=== PATIENT | female | born 1980 | race Asian ===

== ENCOUNTER 2018-01-13 03:15 | Inpatient (IN) | payer SELFPAY ==
[~2018-01-13] VITALS: Ht 162.6 cm; Wt 67.1 kg
[2018-01-13] MEDS ORDERED: LR 1,000 ML IV ONE (03:31)
[2018-01-13] MEDS ORDERED: CEFAZOLIN 2 GM IVPB PREMIX 50 ML IV ONE (03:45)
[2018-01-13 04:50] LABS: CALCIUM 9.3 mg/dL (8.4-11.0); CREATININE 0.44 mg/dL (0.55-1.30); POTASSIUM 3.8 mmol/L (3.5-5.1)
[2018-01-13 04:56] LABS: ALBUMIN 2.8 g/dL (3.4-4.8); TOTAL BILIRUBIN 0.4 mg/dL (0.0-1.0)
[2018-01-13 05:02] LABS: BASOPHILS % (AUTO) 0.1 % (0.0-2.0); EOSINOPHILS % (AUTO) 0.5 % (0.0-4.0); HEMATOCRIT 37.3 % (36-48); HEMOGLOBIN 12.9 g/dL (12.0-16.0); LYMPHOCYTES # (AUTO) 1.6 K/uL (1.0-5.5); LYMPHOCYTES % (AUTO) 25.7 % (20.5-51.5); MEAN CORPUSCULAR HEMOGLOBIN 34 pg (27-31); MEAN CORPUSCULAR HGB CONC 35 % (32-36); MEAN CORPUSCULAR VOLUME 97 fL (79.0-98.0); MONOCYTES # (AUTO) 0.7 K/uL (0.0-1.0); NEUTROPHILS % (AUTO) 62.7 % (40.0-70.0); PLATELET COUNT (AUTO) 194 K/uL (130-430); RED BLOOD CELL COUNT(AUTO) 3.83 MIL/uL (4.2-6.2); RED CELL DISTRIBUTION WIDTH 12.8 % (9.0-15.0); WHITE BLOOD COUNT (AUTO) 6.3 K/uL (4.8-10.8)
[2018-01-13] MEDS: LR 1,000 ML IV SCH ×2 (05:10→20:32)
[2018-01-13 05:18] VITALS: BP_SYST 135
[2018-01-13] MEDS ORDERED: BUPIVACAINE /DEX PF 0.75% SPINAL 2 ML AMP INJ ONE (06:05)
[2018-01-13] MEDS ORDERED: MORPHINE SULFATE 10MG/10ML PF AMP EP ONE (06:05)
[2018-01-13] MEDS ORDERED: LR 1,000 ML IV.SOLN IV ONE (06:05)
[2018-01-13] MEDS ORDERED: OXYTOCIN 10 UNIT/ML VIAL IV ONE (06:05)
[2018-01-13] MEDS ORDERED: NS IRRIG SOLN 1000 ML IR ONE (06:05)
[2018-01-13] MEDS ORDERED: METHYLERGONOVINE MALEATE 0.2 MG/ML AMP IM ONE (06:05)
[2018-01-13] MEDS ORDERED: CLINDAMYCIN PHOSPHATE 900 mg/50mL D5W IV ONE (06:05)
[2018-01-13] MEDS ORDERED: OXYTOCIN/NORMAL SALINE 1,000 ML IV ONE (06:12)
[2018-01-13] MEDS ORDERED: SENNOSIDES/DOCUSATE SODIUM 1 TAB TABLET(SENOKOT-S) PO PRN (06:15)
[2018-01-13] MEDS ORDERED: MEASLES,MUMPS&RUBELLA VACC/PF 12500 UNIT/0.5 ML VIAL SUBQ PRN (06:15)
[2018-01-13] MEDS ORDERED: TEMAZEPAM 15 MG CAPSULE PO PRN (06:15)
[2018-01-13] MEDS ORDERED: HYDROcodone/ACETAMIN 5-325 MG TAB (NORCO/ VICODIN) PO PRN (06:15)
[2018-01-13] MEDS ORDERED: SIMETHICONE 80 MG TAB.CHEW PO PRN (06:15)
[2018-01-13] MEDS ORDERED: ANUSOL 1 EA SUPP.RECT (PREPARATION H) RC PRN (06:15)
[2018-01-13] MEDS ORDERED: ACETAMINOPHEN 325 MG TABLET PO PRN (06:15)
[2018-01-13] MEDS ORDERED: RHO(D) IMMUNE GLOBULIN/MALTOSE 1500 UNITS/1.3 ML (WINHRO) IM PRN (06:15)
[2018-01-13] MEDS ORDERED: LANOLIN 7 GM OINT. TP PRN (06:15)
[2018-01-13] MEDS ORDERED: DIPHENHYDRAMINE INJ 50 MG/ML VIAL IVP PRN (06:45)
[2018-01-13] MEDS ORDERED: KETOROLAC TROMETHAMINE 60 MG/2 ML VIAL IM PRN (06:45)
[2018-01-13] MEDS ORDERED: fentaNYL CITRATE/PF 100 MCG/2 ML AMP IVP PRN ×2 (06:45)
[2018-01-13] MEDS ORDERED: NALOXONE HCL 0.4 MG/ML AMP (NARCAN) IVP PRN ×2 (06:45)
[2018-01-13] MEDS ORDERED: KETOROLAC TROMETHAMINE 30 MG VIAL IVP PRN (06:45)
[2018-01-13] MEDS ORDERED: MORPHINE SULFATE 10MG/10ML PF AMP SP SCH (06:45)
[2018-01-13] MEDS ORDERED: ONDANSETRON HCL 4 MG/2 ML VIAL IVP PRN ×2 (06:45)
[2018-01-13] MEDS ORDERED: NALBUPHINE HCL 10 MG/ML AMP IVP PRN (06:45)
[2018-01-13 07:01] VITALS: BP_SYST 133
[2018-01-13] MEDS ORDERED: ALBUTEROL SULFATE 0.083% 2.5 MG/3 ML VIAL.NEB INH ONE ×2 (07:15→07:18)
[2018-01-13] MEDS: IBUPROFEN 600 MG TABLET PO SCH ×2 (12:00→18:16)
[2018-01-13] MEDS ORDERED: ONDANSETRON HCL 4 MG/2 ML VIAL ONE (12:16)
[2018-01-14] MEDS: IBUPROFEN 600 MG TABLET PO SCH ×4 (00:43→18:22)
[2018-01-14] MEDS: LR 1,000 ML IV SCH (04:14)
[2018-01-14 06:09] LABS: BASOPHILS % (AUTO) 0.2 % (0.0-2.0); EOSINOPHILS % (AUTO) 0.4 % (0.0-4.0); HEMATOCRIT 31.2 % (36-48); HEMOGLOBIN 10.6 g/dL (12.0-16.0); LYMPHOCYTES # (AUTO) 1.1 K/uL (1.0-5.5); LYMPHOCYTES % (AUTO) 13.8 % (20.5-51.5); MEAN CORPUSCULAR HEMOGLOBIN 33 pg (27-31); MEAN CORPUSCULAR HGB CONC 34 % (32-36); MEAN CORPUSCULAR VOLUME 98 fL (79.0-98.0); MONOCYTES # (AUTO) 0.6 K/uL (0.0-1.0); NEUTROPHILS # (AUTO) 6.5 K/uL (1.8-7.7); NEUTROPHILS % (AUTO) 78.6 % (40.0-70.0); PLATELET COUNT (AUTO) 154 K/uL (130-430); RED CELL DISTRIBUTION WIDTH 12.9 % (9.0-15.0); WHITE BLOOD COUNT (AUTO) 8.2 K/uL (4.8-10.8)
[2018-01-14] MEDS: HYDROcodone/ACETAMIN 5-325 MG TAB (NORCO/ VICODIN) PO PRN ×2 (10:01→22:21)
[2018-01-14] MEDS: DOCUSATE SODIUM 100 MG CAPSULE PO PRN ×2 (12:20→22:20)
[2018-01-15] MEDS: IBUPROFEN 600 MG TABLET PO SCH ×4 (00:21→17:54)
[2018-01-15] MEDS: HYDROcodone/ACETAMIN 5-325 MG TAB (NORCO/ VICODIN) PO PRN (15:42)
[2018-01-15] MEDS: BISACODYL 10 MG/SUPPOSITORY RC PRN (20:42)
[2018-01-16] MEDS: IBUPROFEN 600 MG TABLET PO SCH ×3 (00:12→12:22)
[2018-01-16] MEDS ORDERED: DIPH-TET-PERTUS Vaccine 0.5 ML VIAL (ADACEL) I.M. ONE (09:00)
[2018-01-16] MEDS ORDERED: FLU VACC QS 2017-18(36MOS+)/PF 0.5 ML/SYR SYRINGE I.M. PRN (09:00)
[2018-01-16] MEDS ORDERED: DIPH-TET-PERTUS Vaccine 0.5 ML VIAL/Tdap (ADACEL) I.M. PRN (09:45)
[2018-01-16] MEDS: BISACODYL 10 MG/SUPPOSITORY RC PRN (12:22)
[2018-01-16] MEDS: DOCUSATE SODIUM 100 MG CAPSULE PO PRN (12:22)
== END 2018-01-16 13:30 | disposition home or self-care (01) | DRG 766 ==
LOC: SPU 03:15
PROVIDERS: ADMIT Obstetrics & Gynecology; ATTEND Obstetrics & Gynecology
PROC: 10D00Z1 Extraction of Products of Conception, Low, Open Approach (ICD-10-PCS; principal; 2018-01-13 06:00)
PROC: 3E0234Z Introduction of Serum, Toxoid and Vaccine into Muscle, Percutaneous Approach (ICD-10-PCS; 2018-01-16)
DX: O34.211 Maternal care for low transverse scar from previous cesarean delivery (principal); O09.523 Supervision of elderly multigravida, third trimester; O69.81X0 Labor and delivery complicated by cord around neck, without compression, not applicable or unspecified; Z37.0 Single live birth; Z3A.39 39 weeks gestation of pregnancy; Z88.0 Allergy status to penicillin; Z23 Encounter for immunization
CPT/HCPCS: 36415; 80053; 85025; 86592; 86886; 86900; 86901; 90715; 94640; 94760; J0690; J2210; J2274; J2405; J2590; J3490; J7120; Q2037